=== PATIENT | female | born 1995 | race Caucasian/White ===

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

== ENCOUNTER 2018-02-14 12:28 | Emergency (ER) | payer OTHER ==
[2018-02-14] MEDS: NORCO, ANEXSIA 5/325MG TABLET (HYDROcodone/ACETAMINOPHEN) PO (13:16)
== END 2018-02-14 13:39 | disposition home or self-care (01) ==
LOC: M ED 12:28
DX: S62.396A Other fracture of fifth metacarpal bone, right hand, initial encounter for closed fracture (principal); W22.09XA Striking against other stationary object, initial encounter; Y92.511 Restaurant or cafe as the place of occurrence of the external cause; F17.200 Nicotine dependence, unspecified, uncomplicated
CPT/HCPCS: 73130

== ENCOUNTER 2018-05-03 13:22 | Emergency (ER) | payer OTHER | END 2018-05-03 13:52 | disposition home or self-care (01) | LOC: M ED 13:22 | DX: J01.90 Acute sinusitis, unspecified (principal); Z72.0 Tobacco use | CPT/HCPCS: 99282 ==

== ENCOUNTER 2018-10-07 08:38 | Emergency (ER) | payer OTHER ==
[~2018-10-07] VITALS: Ht 170.2 cm; Wt 77.3 kg
[~2018-10-07 08:38] MED LIST: CLAR5TAB7 PO; HYDR-3715 PO; ZITHTAB PO
[2018-10-07] MEDS ORDERED: METOCLOPRAMIDE INJ 10MG/2ML VIAL (J2765) IV ONE (09:30)
[2018-10-07 09:58] LABS: BASO # 0.1 10^3/uL (0.0-0.2); BASO % 0.5 % (0.0-1.0); EOS % 0.3 % (0.0-3.0); HEMATOCRIT 42.7 % (36.0-47.0); LYMPH # 1.6 10^3/uL (1.5-6.5); LYMPH % 11.2 % (24.0-44.0); MEAN CORPUSCULAR HEMOGLOBIN 29.1 pg (27.0-33.0); MEAN CORPUSCULAR HGB CONC 35.1 g/dl (32.0-36.5); MEAN CORPUSCULAR VOLUME 82.8 fl (80.0-96.0); MONO # 0.5 10^3/uL (0.0-0.8); MONO % 3.6 % (0.0-5.0); PLATELET COUNT, AUTOMATED 208 10^3/uL (150-450); RED BLOOD COUNT 5.16 10^6/uL (4.00-5.40); WHITE BLOOD COUNT 14.3 10^3/uL (4.0-10.0)
[2018-10-07 10:12] LABS: ALBUMIN 4.4 GM/DL (3.2-5.2); ALT/SGPT 25 U/L (12-78); BILIRUBIN,DIRECT 0.1 MG/DL (0.0-0.2); BILIRUBIN,TOTAL 0.5 MG/DL (0.2-1.0); BLOOD UREA NITROGEN 10 MG/DL (7-18); CALCIUM LEVEL 9.1 MG/DL (8.5-10.1); CARBON DIOXIDE LEVEL 24 MEQ/L (21-32); CHLORIDE LEVEL 111 MEQ/L (98-107); CREATININE FOR GFR 0.55 MG/DL (0.55-1.30); GLOMERULAR FILTRATION RATE > 60.0 (>60); GLUCOSE, FASTING 123 MG/DL (70-100); LIPASE 71 U/L (73-393); POTASSIUM SERUM 3.4 MEQ/L (3.5-5.1); SODIUM LEVEL 141 MEQ/L (136-145)
[2018-10-07 10:24] LABS: HCG, SERUM QUALITATIVE NEGATIVE (NEGATIVE)
[2018-10-07] MEDS ORDERED: OMEP10CASR PO (10:47)
[2018-10-07 11:00] VITALS: BP 108/72
== END 2018-10-07 11:01 | disposition home or self-care (01) ==
LOC: M ED 08:38
DX: F10.20 Alcohol dependence, uncomplicated (principal); K27.9 Peptic ulcer, site unspecified, unspecified as acute or chronic, without hemorrhage or perforation; Z79.899 Other long term (current) drug therapy; Z87.891 Personal history of nicotine dependence
CPT/HCPCS: 80048; 80076; 81001; 81025; 83690; 84703; 85025; 96374; 99284; J2765

== ENCOUNTER → 2018-12-06 | Outpatient (CLI) | payer OTHER ==
[~2018-12-06] MED LIST changes: +OMEP10CASR PO
[2018-12-06 16:16] LABS: BASO # 0.1 10^3/uL (0.0-0.2); BASO % 0.5 % (0.0-1.0); EOS # 0.1 10^3/uL (0.0-0.50); HEMATOCRIT 43.6 % (36.0-47.0); HEMOGLOBIN 15.2 g/dl (12.0-15.5); LYMPH # 2.4 10^3/uL (1.5-6.5); LYMPH % 21.6 % (24.0-44.0); MEAN CORPUSCULAR HEMOGLOBIN 30.1 pg (27.0-33.0); MEAN CORPUSCULAR HGB CONC 34.9 g/dl (32.0-36.5); MEAN CORPUSCULAR VOLUME 86.3 fl (80.0-96.0); MONO # 0.7 10^3/uL (0.0-0.8); MONO % 6.1 % (0.0-5.0); NEUTROPHILS # 7.8 10^3/uL (1.8-7.7); NEUTROPHILS % 70.3 % (36.0-66.0); PLATELET COUNT, AUTOMATED 221 10^3/uL (150-450); RED BLOOD COUNT 5.05 10^6/uL (4.00-5.40); WHITE BLOOD COUNT 11.1 10^3/uL (4.0-10.0)
[2018-12-06 17:50] LABS: CHLAMYDIA DNA AMPLIFICATION NEGATIVE (NEGATIVE); GC DNA AMPLIFICATION NEGATIVE (NEGATIVE)
[2018-12-07 09:51] LABS: HIV 1&2 SCREEN CENTAUR NEGATIVE (NEGATIVE); RUBELLA IgG QUALITATIVE IMMUNE (IMMUNE)
[2018-12-08 10:43] LABS: HEPATITIS C VIRUS ABY INDEX < 0.0 INDEX (<0.8)
== END ==
LOC: M SMT 13:19
PROVIDERS: ATTEND Advanced Practice Midwife
DX: Z34.81 Encounter for supervision of other normal pregnancy, first trimester (principal); Z3A.00 Weeks of gestation of pregnancy not specified

== ENCOUNTER → 2018-12-15 | Outpatient (CLI) | payer OTHER | LOC: M SMT 11:24 | PROVIDERS: ATTEND Advanced Practice Midwife | DX: Z34.81 Encounter for supervision of other normal pregnancy, first trimester (principal); Z3A.00 Weeks of gestation of pregnancy not specified ==

== ENCOUNTER → 2019-02-09 | Outpatient (CLI) | payer OTHER ==
[~2019-02-09] MED LIST changes: +PRENTAB9 PO
--- NOTE | 2019-02-09 16:29 | REP ---
OB ULTRASOUND: Real-time sonographic evaluation of the gravid uterus is performed. There is a single living intrauterine gestation, estimated gestational age 18 weeks 1 day, EDC 07/12/2019. Today's measurements indicate appropriate growth. BPD 44 mm = 19 weeks 3 days, 84th percentile HC 154 mm = 18 weeks 3 days, 59th percentile AC 132 mm = 18 weeks 5 days, 63rd percentile FL 26 mm = 17 weeks 6 days, 41st percentile HC/AC ratio 1.17, within normal range. Estimated weight 235 grams, 56th percentile. Cervix is closed and measures 3.4 cm in length. heart rate 153 beats per minute. SEEN/GROSSLY UNREMARKABLE Lateral ventricles yes Posterior fossa yes Upper lip yes Four-chamber heart yes LVOT yes RVOT yes Stomach yes Cord insertion yes Three vessel cord yes Kidneys yes Bladder yes Spine yes position: Variable. Placenta: Posterior, fundal and grade 0 with no previa or abruption. Amniotic fluid: Within normal limits. Electronically Signed by Jacinto Solano MD 02/11/2019 10:47 A
== END ==
LOC: M RAD 12:23
PROVIDERS: ATTEND Advanced Practice Midwife
DX: Z34.82 Encounter for supervision of other normal pregnancy, second trimester (principal)

== ENCOUNTER → 2019-04-13 | Outpatient (CLI) | payer OTHER ==
[~2019-04-13] MED LIST changes: -PRENTAB9 PO
[2019-04-13 13:37] LABS: HEMATOCRIT 39.4 % (36.0-47.0); HEMOGLOBIN 13.6 g/dl (12.0-15.5); MEAN CORPUSCULAR HEMOGLOBIN 30.8 pg (27.0-33.0); MEAN CORPUSCULAR HGB CONC 34.5 g/dl (32.0-36.5); MEAN CORPUSCULAR VOLUME 89.1 fl (80.0-96.0); PLATELET COUNT, AUTOMATED 158 10^3/uL (150-450); RED BLOOD COUNT 4.42 10^6/uL (4.00-5.40); WHITE BLOOD COUNT 11.7 10^3/uL (4.0-10.0)
== END ==
LOC: M LAB 11:47
PROVIDERS: ATTEND Advanced Practice Midwife
DX: Z34.02 Encounter for supervision of normal first pregnancy, second trimester (principal); Z3A.00 Weeks of gestation of pregnancy not specified

== ENCOUNTER → 2019-06-09 | Outpatient (REF) | payer OTHER, MEDICAID | LOC: M SFHCWAGY 14:01 | PROVIDERS: ATTEND Advanced Practice Midwife | DX: Z36.85 Encounter for antenatal screening for Streptococcus B (principal) ==

== ENCOUNTER 2019-06-23 06:04 | Inpatient (IN) | payer OTHER ==
[~2019-06-23] VITALS: Ht 172.7 cm; Wt 94.6 kg
--- NOTE | 2019-06-23 07:40 | HPEPDOC ---
Obstetrical History & Physical General Date of Admission Jun 23, 2019 at 06:56 Primary Care Physician: A History of Present Illness Sherie Pleitez is a 24 y.o. @ 37 1/7 weeks gestation by US of 6 weeks gestation. She presents s/p scheduled, prepartum intrauterine ultrasound where she was noted to have oligohydramnios with an STIVEN of 2. She denies contractions, bleeding or vaginal discharge, or SROM. She states movement has been normal. Last intercourse was 3 days ago. Chief Complaint: Other (Oligohydraminos noted on Ultrasound) Information Provided By: Patient, Family Age: 24 : 1 Term: 0 Pre-term: 0 Abortions: 0 Livin Care Care: Good Care Dating Final EDC: Jul 13, 2019 Final EDC by: 1st trimester (US) LMP: Sep 14, 2018 Antepartum Course Change in Weight (lbs.): 16 Past Medical History Past Obstetrical History : Past Obstetrical History: [employer]img[employer] History: No pertinent history Past Medical History Medical History Gastic ulcer: August 2018 Surgical History: Denies/None Family History Significant Family History: Diabetes Family History Brother and maternal Grandmother Social History Marital Status: Single Psychosocial History: No pertinent psych hx * Smoker: former Smoker Alcohol: Denies Drugs: denies, marijuana (Mild use. prior to ) Abuse Violence Screening Have you been hit/kicked/slapp: No Have you been sexually assault: No Imunizations Tdap status: current Influenza Status: declined Allergies Coded Allergies: No Known Allergies (Unverified , 06/23/19) Medications Scheduled Omeprazole (Omeprazole) 10 Mg Capsule.dr, 1 CAP PO DAILY No.137/Iron/Folic Acd ( Vitamin Tablet) 1 Each Tablet, 1 TAB PO DAILY Physical Examination Physical Examination GENERAL: Alert and oriented times three. BREAST: . ABDOMEN: Gravid and non-tender to touch. FETUS: Is vertex (VTX) by sterile vaginal examination (SVE) HEART RATE: Regular rate and rhythm. LUNGS: Clear to auscultation (CTA). EXTREMITIES: No edema. No clonus. Pertinent Laboratoy Data Blood Type: A+ RBC Antibody Screen: Negative HIV: Negative Hepatitis B: Negative Hepatitis C: Unknown Rapid Plasma Reagin: Nonreactive Rubella: Immune Varicella: Unknown Chlamydia/Gonorrhea: Negative Group B Streptococcus: Negative Quad Screen Test: Declined Cystic Fibrosis: Unknown Anatomy Ultrasound Placenta Location: Posterior Normal Anatomy: Yes Placenta Previa: No Estimated Weight (grams): 3265 Vaginal Examination Dilation: 1cm Effacement: 50% Station: -2 Cervical Consistency: Soft Cervical Position: Posterior Presentation: Cephalic presentation Position: Vertex (occiput) Assessment/Plan Assessment is a -year-old (G) para (P)--- at + weeks by -week ultrasound. Presents to Labor and Delivery (L&D) . 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 Diet: . Group B Streptococcus (GBS) [negative]. Labs and intravenous (IV) per unit protocol. Counseled on Pitocin and induction of labor (IOL). Lactated Ringers (LR): Bolus mL, then at mL/hr. Anticipate [normal spontaneous delivery ()]. C-S as appropriate. ETELVINA LOPEZ S-3 Jun 23, 2019 07:40
[2019-06-23] MEDS ORDERED: PRENTAB9 PO (07:45)
[2019-06-23] MEDS: miSOPROStol 50 MCG 1/2 TAB (S0191) SL SCH ×4 (08:52→22:03)
--- NOTE | 2019-06-23 08:58 | REPVR ---
PROCEDURE INFORMATION: Exam: US , Limited Exam date and time: 06/23/2019 6:54 AM Age: 24 years old Clinical indication: Lmp or gestational age (in weeks): 37; Antepartum complications; Oligohydramnios; Fetus 1; ; Additional info: Growth TECHNIQUE: Imaging protocol: Real-time ultrasound of the maternal uterus with image documentation. Exam focused on the clinical indication. COMPARISON: US OBS SINGEL GEST 02/09/2019 12:39 PM FINDINGS: GESTATION: Gestation: Single living intrauterine fetus. Heart rate: 155 beats per minute. Presentation: Cephalic position. Placenta: Posterior fundal grade 1-2 placenta, no previa. Amniotic fluid: Amniotic fluid is decreased for gestational age. STIVEN = 2.2 cm. Umbilical cord and insertion: The S/D ratio is 2.43. The arterial resistive index is 0.59. Spine: Normal appearance of the spine. Extremities: Normal appearance of the extremities. BIOMETRY: Estimated gestational age: Average ultrasound age weeks days; compare LMP 37 weeks 1 day. Estimated due date: FÁTIMA 07/11/2019; compare LMP FÁTIMA 07/13/2019. Estimated weight: Estimated weight 3265 ; 63 percentile (LMP). Biparietal diameter: BPD 37 weeks 3 days. Head circumference: Head circumference weeks 0 days. Abdominal circumference: Abdominal circumference 3937 weeks 5 days. Humerus length: Humeral length 35 weeks 5 days. Femur length: Femur length 37 weeks 0 days. MATERNAL: Cervix: The cervical length is 3.71 cm. Closed. IMPRESSION: Single living intrauterine fetus. Oligohydramnios. Size comparable to dates. Appropriate interval growth. PROCEDURE INFORMATION: Exam: US Biophysical Profile Without Non-Stress Test Exam date and time: 06/23/2019 6:54 AM Age: 24 years old Clinical indication: Lmp or gestational age (in weeks): 37; Antepartum complications; Oligohydramnios; Fetus 1; ; Additional info: Growth TECHNIQUE: Imaging protocol: US biophysical profile without non-stress testing. COMPARISON: US OBS SINGEL GEST 02/09/2019 12:39 PM FINDINGS: Breathin/2 Gross body movements: 2/2 tone: 2/2 Qualitative amniotic fluid: 2/2 Biophysical Profile Score: 8/8 IMPRESSION: Biophysical profile score is 8 out of 8. Electronically signed by: Juliocesar Restrepo On 06/23/2019 08:58:29 AM
[2019-06-23 09:06] LABS: HEMATOCRIT 37.8 % (36.0-47.0); HEMOGLOBIN 13.1 g/dl (12.0-15.5); MEAN CORPUSCULAR HEMOGLOBIN 29.7 pg (27.0-33.0); MEAN CORPUSCULAR HGB CONC 34.7 g/dl (32.0-36.5); MEAN CORPUSCULAR VOLUME 85.7 fl (80.0-96.0); PLATELET COUNT, AUTOMATED 166 10^3/uL (150-450); RED BLOOD COUNT 4.41 10^6/uL (4.00-5.40); WHITE BLOOD COUNT 12.5 10^3/uL (4.0-10.0)
[2019-06-23 10:56] VITALS: BP 133/79
[2019-06-23 11:38] VITALS: BP 143/84
[2019-06-23 14:18] VITALS: BP 128/81
[2019-06-23] MEDS ORDERED: OXYTOCIN DRIP 30 UNITS in IV 1 EA IV SCH (22:45)
[2019-06-24] VITALS (46 sets, daily range): BP systolic 100–144; BP diastolic 51–90
[2019-06-24] MEDS: LR 1,000 ML IV SCH ×3 (03:17→18:37)
--- NOTE | 2019-06-24 14:30 | IPNPDOC ---
Text Note Date of Service The patient was seen on 06/24/19. NOTE Pitocin @ 20mu UC continue to be iregular despite AROM this am Cat I tracing SVE 2+/90/-2, fluid remains clear Cooks catheter placed, inflated 60/40 VS,Fishbone, I+O VS, Fishbone, I+O Vital Signs Date Time Temp Pulse Resp B/P (MAP) Pulse Ox O2 Delivery O2 Flow Rate FiO2 06/24/19 13:59 97.5 18 06/24/19 13:56 82 128/77 (94) Sanjana Yang CNM Jun 24, 2019 14:30
--- NOTE | 2019-06-24 18:19 | IPNPDOC ---
Text Note Date of Service The patient was seen on 06/24/19. NOTE Reports feeling more uncomfortable, pressure Pitocin @ 20mu UC Q 2-3 minutes x 60 seconds FH Cat I SVE Cooks bulb in vagina deflated. Uterine bulb sitting in vagina, removed SVE 5-6/90/-1, moderate bloody show Desires epidural VS,Fishbone, I+O VS, Fishbone, I+O Vital Signs Date Time Temp Pulse Resp B/P (MAP) Pulse Ox O2 Delivery O2 Flow Rate FiO2 06/24/19 13:59 97.5 18 06/24/19 13:56 82 128/77 (94) Sanjana Yang CNM Jun 24, 2019 18:19
[2019-06-24] MEDS ORDERED: FENTANYL 2MCG/ML ROPIVACAINE 0.2% IN 0.9% NACL 100ML IVBAG As Ordered ONE (18:23)
[2019-06-24] MEDS ORDERED: EPIDURAL/PCA KEYS XX PRN (19:30)
[2019-06-24] MEDS ORDERED: NALOXONE INJ 0.4 MG/1 ML VIAL (J2310) IV PRN (19:30)
[2019-06-24] MEDS ORDERED: diphenhydrAMINE INJ 50MG/ML VIAL (J1200) IV PRN (19:30)
[2019-06-24] MEDS ORDERED: ONDANSETRON 4MG/2ML VIAL (J2405) IV PRN (19:30)
[2019-06-24] MEDS ORDERED: EPIDURAL COMMENT XX SCH (19:30)
[2019-06-24] MEDS ORDERED: LACTATED RINGER'S 1000 ML IV PRN (19:30)
[2019-06-24] MEDS ORDERED: ePHEDrine SULFATE 25 MG/5 ML(5MG/ML) SYRINGE IV PRN (19:30)
[2019-06-24] MEDS ORDERED: REFRIGERATOR IV KEYS XX PRN (19:30)
[2019-06-24] MEDS ORDERED: FENTANYL/ROPIVACAINE/NACL BAG 100 ML EPIDURAL SCH (19:30)
--- NOTE | 2019-06-24 20:41 | IPNPDOC ---
Text Note Date of Service The patient was seen on 06/24/19. NOTE More comfortable with epidural UC 3-5 minutes apart FH decels with UC, baseline 130, moderate variability. Decels 70's. FSE placed, O2, IV bolus, position change and pitocin off. Observe and update Santana Wadsworth, I+O VSSantana, I+O Vital Signs Date Time Temp Pulse Resp B/P (MAP) Pulse Ox O2 Delivery O2 Flow Rate FiO2 06/24/19 19:01 97.9 93 18 135/70 (91) Sanjana Yang CNM Jun 24, 2019 20:41
[2019-06-24] MEDS ORDERED: DOCUSATE SODIUM 100 MG CAP PO PRN (23:30)
[2019-06-24] MEDS ORDERED: ACETAMINOPHEN TAB 650MG DOSE (2X325MG) PO PRN (23:30)
[2019-06-24] MEDS ORDERED: IBUPROFEN 600 MG TAB PO PRN (23:30)
[2019-06-24] MEDS ORDERED: ANUSOL HC CREAM 30GM TOP PRN (23:30)
[2019-06-24] MEDS ORDERED: IBUPROFEN 800 MG TAB PO PRN (23:30)
[2019-06-24] MEDS ORDERED: RHOGAM 300 MCG (1500 IU) INJ (J2790) IM SCH (23:30)
[2019-06-24] MEDS ORDERED: DIBUCAINE 1% OINTMENT 30GM TOP PRN (23:30)
[2019-06-24] MEDS ORDERED: miSOPROStol 200 MCG TAB (S0191) PR ONE (23:30)
[2019-06-24] MEDS ORDERED: ACETAMINOPHEN 500 MG TAB PO PRN (23:30)
[2019-06-24] MEDS ORDERED: MOM 30ML SUSPENSION UDC PO PRN (23:30)
[2019-06-24] MEDS ORDERED: MEASLES,MUMPS,RUBELLA VACCINE INJ (MMR-II) (90707) SC SCH (23:30)
--- NOTE | 2019-06-24 23:33 | DNPDOC ---
[facility] Delivery Note Delivery Note DATE OF DELIVERY: 06/24/2019 PREDELIVERY DIAGNOSIS: 37+2/7 weeks' gestation and labor. POST DELIVERY DIAGNOSIS: Delivered. PROCEDURE: Spontaneous vaginal delivery. PROVIDER: Sanjana Yang CNM ANESTHESIA: Epidural. ESTIMATED BLOOD LOSS: 300 mL. FINDINGS: 6 pound 3 ounce, 2810gm female infant, Score 9/10, no nuchal cord. Compound presentation with left posterior arm. DELIVERY SUMMARY: Patient is a 24-year-old 1 now para 1-0-0-1 who was admitted to labor and delivery for induction of labor due to oligohydramnios. She received misoprostol, pitocin, Cooks Catheter and AROM. She utilized an epidural for labor coping. Fully dilated at 2133. Deep variable decels noted, treated with position change, IV bolus and oxygen. Viable female child delivered LUIS, restituted to JAMAL, compound with left posterior arm @ 2257. Spontaneous respirations with stimulation, transitioned on maternal abdomen. Cord gases obtained, results are pending. Cord doubly clamped and cut by FOB under my direction once pulsations ceased. Apgars 9/10. Placenta colunga, intact with 3v cord @ 2305. Fundus slow to firm with brisk bleeding despite massage and IV pitocin bolus. Misoprostol 1000mcg DE given with excellent control of bleeding. Perineum, cervix and vagina inspected. Left labial laceration repaired with 2 interrupted suture of 3-0 vicryl rapide. EBL 300ml. Sponge, sharp and instrument count correct. Parents are naming their daughter Alisson. Sanjana Yang CNM Jun 24, 2019 23:33
[2019-06-24 23:36] LABS: CORD GAS ABE A -5.4; CORD GAS HCO3 A 20.9 MEQ/L; CORD GAS O2 SAT A 81.1 %; CORD GAS PCO2 A 43.5 mmHg; CORD GAS PH A 7.299 UNITS; CORD GAS SBC A 19.7 MEQ/L; CORD GAS TCO2 A 22.2 MEQ/L
[2019-06-24 23:37] LABS: CORD GAS ABE V -5.6; CORD GAS HCO3 V 18.2 MEQ/L; CORD GAS O2 SAT V 94.8 %; CORD GAS PCO2 V 31.1 mmHg; CORD GAS PH V 7.385 UNITS; CORD GAS PO2 V 64.5 mmHg; CORD GAS SBC V 19.9 MEQ/L; CORD GAS TCO2 V 19.1 MEQ/L
[2019-06-25] MEDS: METHYLERGONOVINE MALEATE 0.2 MG TAB PO SCH ×4 (00:09→17:56)
[2019-06-25 00:12] VITALS: BP 127/75
[2019-06-25 00:26] VITALS: BP 120/69
[2019-06-25 01:37] VITALS: BP 125/66
--- NOTE | 2019-06-25 07:29 | IPNPDOC ---
Text Note Date of Service The patient was seen on 06/25/19. NOTE PP #1 Feels well. Adequate pain management. Voiding VSS, afebrile,normotensive Breasts soft Fundus firm, NT, down 1 FB Lochia rubra light without odor Perineum well approximated without edema PP #1 Routine care. Anticipate D/C in am VS,Fishbone, I+O VS, Fishbone, I+O Vital Signs Date Time Temp Pulse Resp B/P (MAP) Pulse Ox O2 Delivery O2 Flow Rate FiO2 06/25/19 01:37 97.6 78 17 125/66 (85) 98 Room Air I&O- Last 24 Hours up to 6 AM 06/25/19 06:00 Intake Total 4521.4 ml Output Total 1000 ml Balance 3521.4 ml Sanjana Yang CNM Jun 25, 2019 07:29
[2019-06-25] MEDS: PRENATAL VITAMINS CHEWABLE TABLET PO SCH (09:23)
[2019-06-25 18:00] VITALS: BP 109/59
[2019-06-26] MEDS: METHYLERGONOVINE MALEATE 0.2 MG TAB PO SCH (00:20)
[2019-06-26] MEDS ORDERED: METHYLERGONOVINE MALEATE 0.2 MG TAB PO SCH (03:15)
[2019-06-26] MEDS ORDERED: METHYLERGONOVINE MALEATE 0.2 MG TAB PO PRN (03:30)
[2019-06-26 06:00] VITALS: BP 102/60
[2019-06-26] MEDS: PRENATAL VITAMINS CHEWABLE TABLET PO SCH (08:31)
[2019-06-26] MEDS ORDERED: INFLUENZA QUADRIVALENT PF VACCINE 0.5ML SYRINGE (90686) IM ONE (09:00)
== END 2019-06-26 13:44 | disposition home or self-care (01) | DRG 560 ==
LOC: M RAD 06:04 → M LDI 06:56 → OBSVTOIN 08:41 → M OBS 06-25 01:13
PROVIDERS: ADMIT Specialist; ATTEND Specialist
PROC: 3E033VJ Introduction of Other Hormone into Peripheral Vein, Percutaneous Approach (ICD-10-PCS; 2019-06-23)
PROC: 10E0XZZ Delivery of Products of Conception, External Approach (ICD-10-PCS; principal; 2019-06-24)
PROC: 0HQ9XZZ Repair Perineum Skin, External Approach (ICD-10-PCS; 2019-06-24)
PROC: 10907ZC Drainage of Amniotic Fluid, Therapeutic from Products of Conception, Via Natural or Artificial Opening (ICD-10-PCS; 2019-06-24)
DX: O32.6XX0 Maternal care for compound presentation, not applicable or unspecified (principal); O41.03X0 Oligohydramnios, third trimester, not applicable or unspecified; Z37.0 Single live birth; Z3A.37 37 weeks gestation of pregnancy; O70.0 First degree perineal laceration during delivery